=== PATIENT | female | born 1950 | race African-American/Black ===

== ENCOUNTER 2016-11-29 13:09 | Emergency (ER) | payer MEDICARE, OTHER ==
[~2016-11-29] VITALS: Ht 167.6 cm; Wt 64.5 kg
[~2016-11-29 13:09] MED LIST: OXYC10TA63
[2016-11-29 13:10] VITALS: Ht 167.6 cm; Wt 64.5 kg
[2016-11-29] MEDS ORDERED: IBUPROFEN 800 MG TAB PO ONE (13:30)
[2016-11-29] MEDS ORDERED: IBUP-1542 PO (13:44)
[2016-11-29] MEDS ORDERED: ACET500C5 PO (13:44)
[2016-11-29] MEDS ORDERED: CEPH-443 PO (13:44)
[2016-11-29] MEDS ORDERED: SULF1TAB31 PO (13:45)
--- NOTE | 2016-11-29 13:51 | ERD ---
ER Documentation Chief Complaint Date/Time DATE: 11/29/16 TIME: 13:47 Chief Complaint BROUGHT IN VIA EMS DUE TO SUSPECTED INSECT BITE ON ABDOMEN HPI This a 66-year-old female who presents to the emergency department today complaining of an insect bite on her stomach. Patient states it has been there for 2 days and she has been picking at it. States that she took Tylenol. States that she is an ex-addict and does not want any strong pain medication. States that she took the ambulance here because "she would not have made here otherwise" denies any fevers or chills. ROS All systems reviewed and are negative except as per history of present illness. Medications Home Meds Active Scripts Sulfamethoxazole/Trimethoprim* (Bactrim Ds* Tablet) 1 Each Tablet, 1 TAB PO BID for 7 Days, #14 TAB Prov:SARAH HONG PA-C 11/29/16 Cephalexin* (Keflex*) 500 Mg Capsule, 500 MG PO QID for 7 Days, CAP Prov:SARAH HONG PA-C 11/29/16 Acetaminophen* (Tylophen*) 500 Mg Capsule, 1 CAP PO Q6H Y for PAIN AND OR ELEVATED TEMP, #30 CAP Prov:SARAH HONG PA-C 11/29/16 Ibuprofen* (Motrin*) 600 Mg Tab, 600 MG PO Q6, #30 TAB Prov:SARAH HONG PA-C 11/29/16 Reported Medications Oxycodone Hcl* (Oxycontin*) 10 Mg Tab.sr.12h 10/29/09 Allergies Allergies: Coded Allergies: No Known Allergy (Verified Allergy, Unknown, 05/13/09) PMhx/Soc History of Surgery: Yes (FIBROIDS & CYST REMOVAL) Anesthesia Reaction: No Hx Neurological Disorder: No Hx Respiratory Disorders: No Hx Cardiac Disorders: Yes (htn) Hx Psychiatric Problems: Yes (DEPRESSION ) Hx Miscellaneous Medical Probl: Yes (diabetic type 2) Hx Alcohol Use: No Hx Substance Use: No Hx Tobacco Use: No Smoking Status: Never smoker Physical Exam Vitals Vital Signs Date Time Temp Pulse Resp B/P Pulse Ox O2 Delivery O2 Flow Rate FiO2 11/29/16 13:10 98.3 86 18 121/60 99 Physical Exam Const: No acute distress Head: Atraumatic Eyes: Normal Conjunctiva ENT: Normal External Ears, Nose and Mouth. Neck: Full range of motion..~ No meningismus. Resp: Clear to auscultation bilaterally Cardio: Regular rate and rhythm, no murmurs Abd: Soft, non tender, non distended. Normal bowel sounds Skin: Evidence of 2 separate 2 cm abscess right side of lower abdomen along belt line with localized erythema. Wounds are draining. Back: No midline or flank tenderness Ext: No cyanosis, or edema Neur: Awake and alert Psych: Normal Mood and Affect Results 24 hrs Current Medications Medications (Trade) Dose Ordered Sig/Uma Route PRN Reason Start Time Stop Time Status Last Admin Dose Admin Ibuprofen (Motrin) 800 mg ONCE ONCE PO 11/29/16 13:30 11/29/16 13:31 DC 11/29/16 13:39 Procedures/MDM Is a 66-year-old female who presents to the emergency department today complaining of insect bites on her abdomen for the past 2 days. Patient did indicate that she squeezed the area and pus came out. On physical exam patient has 2 small 2 cm areas of what appear to be infected insect bites versus acute abscess. Wounds were draining and there was some other localized induration and do not feel that an I&D is required at this time as wounds are already draining. Patient is afebrile and otherwise well-appearing. I have low suspicion for sepsis, deep space tracking infection. Her symptoms at this time is consistent with abscess. patient was given Motrin here in the emergency. She will be given a prescription for Tylenol Motrin Keflex and Bactrim for home. Patient was instructed not to pick at the area and keep the area clean and dry. She was instructed to return in 48 hours for a wound check. Patient understood. At this time the patient is stable for discharge and outpatient management. Patient should follow up with their PCP in the next 1-2 days. They may return to the emergency department sooner for any persistent or worsening of symptoms. Patient understood and agreed with the plan. Departure Diagnosis: Primary Impression: Infected bite wound Additional Impression: Abscess Condition: Fair Patient Instructions: Abscess, Antiobiotic Treatment Only, Insect Sting/Bite, Infected Additional Instructions: Call your primary care doctor TOMORROW for an appointment during the next 1-2 days.See the doctor sooner or return here if your condition worsens before your appointment time. Wound check in 48 hours Keep wound clean and dry Apply warm compresses Take antibiotics as prescribed Take Tylenol or Motrin for pain Do not pick at wound SARAH HONG PA-C Nov 29, 2016 13:51
== END 2016-11-29 13:53 | disposition home or self-care (01) ==
LOC: FTE 13:09
DX: S30.861A Insect bite (nonvenomous) of abdominal wall, initial encounter (principal); I10 Essential (primary) hypertension; E11.9 Type 2 diabetes mellitus without complications; L02.211 Cutaneous abscess of abdominal wall; W57.XXXA Bitten or stung by nonvenomous insect and other nonvenomous arthropods, initial encounter; Y92.9 Unspecified place or not applicable
CPT/HCPCS: 99284

== ENCOUNTER 2017-05-12 16:56 | Emergency (ER) | END 2017-05-12 21:46 | disposition home or self-care (01) ==

== ENCOUNTER 2017-05-15 02:57 | Emergency (ER) | END 2017-05-15 06:12 | disposition home or self-care (01) ==

== ENCOUNTER 2017-05-25 04:37 | Emergency (ER) | END 2017-05-25 14:02 | disposition home or self-care (01) ==

== ENCOUNTER 2017-05-31 23:27 | Emergency (ER) | END 2017-06-01 02:14 | disposition home or self-care (01) ==

== ENCOUNTER 2017-09-22 07:52 | Emergency (ER) | END 2017-09-22 21:34 ==